=== PATIENT | female | born 1940 | race Caucasian/White ===

== ENCOUNTER → 2018-05-16 | Outpatient (CLI) | payer MEDICARE | LOC: M.CT 09:32 | DX: R10.84 Generalized abdominal pain (principal); Z79.899 Other long term (current) drug therapy ==

== ENCOUNTER 2018-10-26 15:41 | Inpatient (IN) | payer MEDICARE ==
[~2018-10-26] VITALS: Ht 167.6 cm; Wt 80.2 kg
[2018-10-26 15:52] VITALS: BP 176/79
[2018-10-26] MEDS ORDERED: TOPROL XL25 MG PO (15:57)
[2018-10-26] MEDS ORDERED: OXYBUTYNIN 5 MG5 M2 PO (15:57)
[2018-10-26] MEDS ORDERED: EFFEXOR XR37.5 MG PO (15:58)
[2018-10-26] MEDS ORDERED: LISINOPRIL10 MG PO (15:59)
[2018-10-26 16:02] LABS: URINE BILIRUBIN NEGATIVE (Negative); URINE BLOOD 1+ (Negative); URINE CLARITY CLEAR; URINE COLOR YELLOW; URINE GLUCOSE-RANDOM NEGATIVE (Negative); URINE KETONES 1+ (Negative); URINE LEUKOCYTES-REFLEX TRACE (Negative); URINE NITRITE-REFLEX NEGATIVE (Negative); URINE PROTEIN 2+ (Negative); URINE UROBILINOGEN 0.2 E.U./dl (0.2-1.0)
[2018-10-26 16:17] LABS: SQUAMOUS >10 Many /LPF (0-3)
[2018-10-26 16:18] LABS: MUCUS 0-3 Light strn/LPF (None Seen); URINE WBC-REFLEX 0-5 Rare /HPF (0-5)
[2018-10-26 16:20] LABS: CRYSTALS None Seen /LPF (None Seen); HYALINE CASTS 0-3 Few /LPF (None Seen); URINE RBC 0-2 Rare /HPF (0-2)
[2018-10-26 16:21] LABS: ABSOLUTE LYMPHOCYTES 1.6 thou/uL (0.8-5.3); ABSOLUTE MONOCYTES 0.9 thou/uL (0.0-1.2); ABSOLUTE NEUTROPHILS 6.8 thou/uL (1.6-8.1); BASOPHILS 0.3 %; EOSINOPHILS 0.1 %; HEMATOCRIT 39.2 % (37.0-47.0); HEMOGLOBIN 13.3 gm/dL (12.0-15.0); LYMPHOCYTES 17.4 %; MCH 26.7 pg (26.0-34.0); MCHC 33.9 g/dL (28.0-37.0); MCV 78.8 fL (80.0-100.0); MONOCYTES 9.8 %; MPV 8.8 fl. (7.2-11.1); NUCLEATED RBCS 0 /100WBC; PLATELET COUNT* 217 thou/uL (150-400); POLYS 72.4 %; RBC 4.98 mil/uL (4.20-5.00); RDW-CV 14.8 % (10.5-14.5); WBC 9.5 thou/uL (4.0-11.0)
[2018-10-26 16:40] LABS: ALBUMIN 3.6 g/dL (3.4-5.0); CREATININE 0.8 mg/dL (0.6-1.3); POTASSIUM 3.1 mmol/L (3.5-5.1); TOTAL BILIRUBIN 0.5 mg/dL (<0.1-1.0); TOTAL PROTEIN 7.6 g/dL (6.4-8.2); TROPONIN-I LEVEL 0.48 ng/mL (<0.06)
[2018-10-26 17:04] LABS: INFLUENZA A ANTIGEN None Detected (None Detect); INFLUENZA B ANTIGEN None Detected (None Detect)
[2018-10-26 18:21] VITALS: BP 164/74
[2018-10-26 18:45] VITALS: BP 192/106
[2018-10-26] MEDS ORDERED: TOPROL XL50 MG PO (19:41)
[2018-10-26] MEDS ORDERED: EFFEXOR XR75 MG PO (19:42)
--- NOTE | 2018-10-26 20:15 | NUR ---
PT ARRIVED TO ROOM 207 FROM THE ER AT APPROX 1845, PT ORIENTED TO ROOM AND STAFF. PT DENIES PAIN BUT STATES SHE FEELS LIKE SHE IS GOING TO THROW UP BUT CANNOT. PT DID EAT A LITTLE JELLO AND SPRITE. PTS BP ELEVATED, DR NOTIFIED, PTS HOME MEDS REVIEWED AND DR NOTIFIED OF CHANGES. REPORT GIVEN TO XUAN ENCINAS.
[2018-10-26 21:15] VITALS: BP 178/89
[2018-10-26 23:57] VITALS: BP 170/76
[2018-10-27] VITALS (13 sets, daily range): BP systolic 123–167; BP diastolic 55–80
[2018-10-27 05:10] LABS: HEMATOCRIT 35.7 % (37.0-47.0); HEMOGLOBIN 12.1 gm/dL (12.0-15.0); MCH 26.7 pg (26.0-34.0); MCHC 33.9 g/dL (28.0-37.0); MCV 78.8 fL (80.0-100.0); MPV 9.1 fl. (7.2-11.1); RBC 4.53 mil/uL (4.20-5.00); RDW-CV 15.1 % (10.5-14.5)
[2018-10-27 05:35] LABS: CHOLESTEROL 198 mg/dL (<200); HDL CHOLESTEROL 36 mg/dL (>40); LDL CHOLESTEROL 140 mg/dL (<100); TC:HDL 5.5 Ratio (Not establshd); TRIGLYCERIDE 114 mg/dL (<150); VLDL 23 mg/dL (<40)
[2018-10-27 05:36] LABS: SERUM ASSESSMENT CLEAR
[2018-10-27 05:45] LABS: CALCIUM 9.1 mg/dL (8.5-10.1); CREATININE 0.7 mg/dL (0.6-1.3); POTASSIUM 3.3 mmol/L (3.5-5.1); TROPONIN-I LEVEL 0.47 ng/mL (<0.06)
[2018-10-27 06:24] LABS: AMP/METHAMP Negative (Negative); BARBITURATES Negative (Negative); BENZODIAZEPINES Negative (Negative); COCAINE Negative (Negative); METHADONE Negative (Negative); OPIATES Negative (Negative); PCP Negative (Negative); THC Negative (Negative)
--- NOTE | 2018-10-27 07:45 | NUR ---
ASSUMED CARE OF PT ASSESSED AND DOCUMENTED. PT IS ON CARDIAC MONITER TRACING SR BBB HR 78. PT IS A&O WITH NO C/O PAIN. VSS WNL. PT IS AFEBRILE. PT IS ON ROOM AIR.BED IS IN LOW POSITION CALL LIGHT IS IN REACH. WM.
--- NOTE | 2018-10-27 08:27 | NUR ---
PT IS ABLE TO COMMUNICATE HER NEEDS TO STAFF EFFECTIVELY. SHE HAS DENIED THE NEED FOR PAIN MEDICATION UP TO THIS TIME. SHE HAS BEEN NPO SINCE MIDNIGHT FOR A CARDIOLOGY CONSULT THIS MORNING.
--- NOTE | 2018-10-27 10:39 | EKG ---
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
--- NOTE | 2018-10-27 13:08 | 2DMMODE ---
[place] [address] 2 D/M-MODE ECHOCARDIOGRAM Name: DEVIKA CARL Room: [address] IN [facility]#: [id number] Admission: 10/26/18 Attend Phys: Monique Becerra MD Discharge: Date of : 44 Date of Service: 10/27/18 1308 Report #: [id number] THIS REPORT FOR: //name// APPROVED REPORT Study performed: 10/27/2018 10:35:12 EXAM: Comprehensive 2D, Doppler, and color-flow Echocardiogram Patient Location: In-Patient Room #: [facility] Status: routine BSA: 1.91 HR: 66 bpm BP: 139/61 mmHg Rhythm: NSR Other Information Study Quality: Good Indications CAD 2D Dimensions IVSd: 13.77 (7-11mm) LVOT Diam: 19.74 (18-24mm) LVDd: 51.14 mm PWd: 11.48 (7-11mm) Ascending Ao: 28.20 (22-36mm) LVDs: 32.80 (25-40mm) Aortic Root: 31.18 mm Volumes Left Atrial Volume (Systole) LA ESV Index: 47.70 mL/m2 Aortic Valve AoV Peak Mitchell.: 1.71 m/s AO Peak Gr.: 11.71 mmHg LVOT Max P.61 mmHg AO Mean Gr.: 6.21 mmHg LVOT Mean P.95 mmHg LVOT Max V: 1.29 m/s AO V2 VTI: 37.86 cm LVOT Mean V: 0.78 m/s CHRISTY (VTI): 2.19 cm2 LVOT V1 VTI: 27.04 cm Mitral Valve MV Mean Gr.: 2.58 mmHg E/A Ratio: 0.67 MV Decel. Time: 375.36 ms MV E Max Mitchell.: 0.75 m/[place] [address] 2 D/M-MODE ECHOCARDIOGRAM Name: DEVIKA CARL Room: [address] IN .R.#: [id number] Admission: 10/26/18 Attend Phys: Monique Becerra MD Discharge: Date of : 44 Date of Service: 10/27/18 1308 Report #: [id number] MV PHT: 108.86 ms MVA (PHT): 2.02 cm2 TDI E/Lateral E': 12.50 E/Medial E': 12.50 Medial E' Mitchell.: 0.06 m/s Lateral E' Mitchell.: 0.06 m/s Pulmonary Valve PV Peak Mitchell.: 1.03 m/s PV Peak Gr.: 4.22 mmHg Left Ventricle The left ventricle is normal size. There is normal LV segmental wall motion. Mild concentric left ventricular hypertrophy. Left ventricular systolic function is normal. LVEF is 60-65%. Grade I - abnormal relaxation pattern. Right Ventricle The right ventricle is normal size. The right ventricular systolic function is normal. Atria Left atrium is moderately dilated. Right atrium is mildly dilated. Aortic Valve Mild aortic valve sclerosis. No aortic regurgitation is present. There is no aortic valvular stenosis. Mitral Valve There is mitral annular calcification. Trace mitral regurgitation. No evidence of mitral valve stenosis. Tricuspid Valve The tricuspid valve is normal in structure. There is no tricuspid valve regurgitation noted. Pulmonic Valve The pulmonary valve is normal in structure. Trace pulmonic regurgitation. Great Vessels The aortic root is normal in size. IVC is normal in size and collapses >50% with inspiration[place] [address] 2 D/M-MODE ECHOCARDIOGRAM Name: DEVIKA CARL Room: [address] IN [facility]#: [id number] Admission: 10/26/18 Attend Phys: Monique Becerra MD Discharge: Date of : 44 Date of Service: 10/27/18 1308 Report #: [id number] There is no pericardial effusion. <Conclusion> The left ventricle is normal size. Mild concentric left ventricular hypertrophy. Left ventricular systolic function is normal. LVEF is 60-65%. Grade I - abnormal relaxation pattern. Left atrium is moderately dilated. Right atrium is mildly dilated. Mild aortic valve sclerosis. There is no aortic valvular stenosis. Trace mitral regurgitation. There is mitral annular calcification. IVC is normal in size and collapses >50% with inspiration. <ELECTRONICALLY SIGNED> By: Good Zuñiga MD, FACC 10/27/18 1308 1308 1308 Good Zuñiga MD, FACC /INF
--- NOTE | 2018-10-27 13:18 | EKG ---
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1940 Requested By: Monique Becerra Order Number: [id number] Reading MD: Good Zuñiga Measurements Intervals [place] Rate: 67 P: 19 OK: 164 QRS: -68 QRSD: 150 T: 42 QT: 486 QTc: 513 Interpretive Statements Sinus rhythm Atrial premature complex RBBB and LAFB Probable left ventricular hypertrophy Compared to ECG 10/26/2018 16:32:33 Atrial premature complex(es) now present Electronically Signed On 10-27-2018 13:17:53 CDT by Good Zuñiga [email or web address] <ELECTRONICALLY SIGNED> By: Good Zuñiga MD, [facility] 10/27/18 1317 4 Good Zuñiga MD, [facility] /EPI
[2018-10-27] MEDS ORDERED: ATORVASTATIN CA20 MG PO (14:28)
--- NOTE | 2018-10-27 14:36 | NUR ---
REMOVED R RADIAL BAND AFTER REMOVING THE LAST 2ML OF AIR, SITE IS CLEAN AND DRY.
== END 2018-10-27 17:45 | disposition home or self-care (01) | DRG 391 ==
LOC: M.ERS 15:41 → M.2W 17:19 → M.TBA-ER 17:19 → M.2W 18:44
PROVIDERS: Emergency Medicine Emergency Medical Services; Nurse Practitioner Family; ADMIT Family Medicine
DX: A08.4 Viral intestinal infection, unspecified (principal); I21.A1 Myocardial infarction type 2; I24.9 Acute ischemic heart disease, unspecified; I16.0 Hypertensive urgency; Z96.653 Presence of artificial knee joint, bilateral; F15.21 Other stimulant dependence, in remission; I10 Essential (primary) hypertension; E86.0 Dehydration; E87.6 Hypokalemia; E83.42 Hypomagnesemia; E78.5 Hyperlipidemia, unspecified; Z79.82 Long term (current) use of aspirin; Z90.13 Acquired absence of bilateral breasts and nipples; Z92.21 Personal history of antineoplastic chemotherapy; Z92.3 Personal history of irradiation; Z85.3 Personal history of malignant neoplasm of breast; Z79.899 Other long term (current) drug therapy